=== PATIENT | female | born 1960 | race Caucasian/White ===

== ENCOUNTER 2016-08-01 14:50 | Emergency (ER) | payer OTHER ==
--- NOTE | 2016-08-01 15:13 | EDPRACDOC ---
- General Stated Complaint: TIA Time Seen by Provider: 08/01/16 15:02 Information Source: Patient Exam Limitations: No Limitations Allergies/Adverse Reactions: Allergies Allergy/AdvReac Type Severity Reaction Status Date / Time No Known Allergies Allergy Verified 08/01/16 16:02 Home Medications: Ambulatory Orders Metformin HCl 500 mg PO BID #60 tab 10/21/15 Promethazine [Phenergan] 25 mg PO Q8H PRN #30 tab 10/21/15 Losartan Potassium [Cozaar] 50 mg PO DAILY 08/01/16 Metoprolol Tartrate 50 mg PO BID #60 tablet 08/01/16 Nitrofurantoin [Macrobid] 100 mg PO BID #10 capsule 08/01/16 - History of Present Illness Exact Onset of Symptoms: Unknown Date Symptoms Started: 08/01/16 Symptoms Started: Reports: At Rest Symptoms: Reports: Slurred speech Associated Symptoms: Reports: Denies Symptoms HPI: PT PRESENTS WITH RESOLVED SLURRED SPEECH WHICH WAS NOTICED BY [employer]. SHE DENIES OTHER SYMPTOMS. DOES NOT KNOW ONSET BECAUSE SHE HAD NOT NOTICED THE SLURRING. 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 SHE DOES ADMIT TO MISSING HER BLOOD PRESSURE MEDICATION THIS MORNING WHICH IS AN ARB. ED Past Medical History - History Reviewed Yes Nurses notes reviewed and agree except as marked - Patient Medical History Cardiac History: Reports: Hypertension, Hypercholesterolemia GI/ History: Reports: Urinary Tract Infection Psychological History: Denies: Substance Use Disorder Systemic History: Reports: Diabetes - Family Medical History Reports: Diabetes, Stroke (Father). Denies: Hypertension, Cancer - Social Medical History Smoking Status: Former smoker Social History: Denies: Barbiturate Use, Substance Use Disorder Lives In: Home EDM Review of Systems - Review of Systems ROS Negative Except as Marked: Yes All systems reviewed and were negative except as marked Constitutional: negative: Fever Respiratory: negative: Shortness of Breath Cardiovascular: negative: Chest Pain Gastrointestinal: negative: Nausea, Pain, Vomiting Neurological: Speech Difficulty (SLURRED SPEECH AT WORK WHICH HAS RESOLVED.). negative: Headache - Physical Exam Constitutional: Alert Oriented to: Time, Person, Place Last recorded Vital Signs: Oxygen Pulse Oxygen Saturation O2 Device Oxygen Flow Rate Fraction of Inspired Oxygen ( FIO2) - HEENT Head: negative: Deformity, Laceration Eye Exam: negative: Conjunctival Injection, Pale Conjunctiva Oropharynx: negative: Membranes Dry Nose: negative: Congestion, Discharge Neck: negative: Limited ROM - Respiratory/Cardiovascular Respiratory: Normal - CTA. negative: Accessory Muscle Use, Diminished, Tachypnea Cardiovascular: negative: Bradycardia, Tachycardia, Irregular - GI Auscultation: Normal Palpation: Normal Tenderness: Non tender - Musculoskeletal Extremities: Pedal Pulse (PALPABLE), Radial Pulse (PALPABLE). negative: Calf Tenderness - Integumentary Skin: Warm, Dry. negative: Rash - Neurologic Memory Impaired: Normal Motor Function: Normal Mood Description: Anxious, Appropriate Thought: Coherent Perception: Normal NIH Stroke Scale Initial Evaluation Level of Consciousness: Alert LOC- Question: Answers Both Correctly LOC Commands: Both Task Correctly Best Gaze: Normal Visual: No Visual Loss Facial Palsy: Normal Movement Motor Arm LEFT: No Drift Motor Arm RIGHT: No Drift Motor Leg LEFT: No Drift Motor Leg RIGHT: No Drift Limb Ataxia: Absent Sensory: Normal Best Language: No Aphasia Dysarthria: Normal Extinction and Inattention: No Abnormality (Neglect) Score: 0out of42 - Action Has patient received an Antithrombotic in the last 24hrs?: No Was an Antithrombotic given in the ED?: Yes Is patient a candidate for lytic therapy?: No Patient received TPA within 30 min of arrival?: No Reason IV Thrombolytics Contraindicated: Rapid Improvement - Re-evaluation Re-evaluation 1 Re-evaluation Time: 19:15 PT HAS REMAINED ASYMPTOMATIC SINCE ARRIVAL AND HER BLOOD PRESSURE IS DECREASING AFTER ADDITION OF METOPROLOL. WILL PRESCRIBE FOR HOME AND HAVE ADVISED HER TO TAKE A DAILY ASPIRIN. - Results 08/01/16 15:10 08/01/16 15:10 - EKG EKG #1 EKG Time: 15:01 -: Yes EKG interpreted by me Rate: bpm: 90 Rhythm: NSR Block: None ST: Nonsp Decision Time to Discharge: 19:16 - Departure Yes I personally saw and evaluated the patient. Disposition: Home Condition: Improved Final Diagnosis: Urinary tract infection Qualifiers: Urinary tract infection type: site unspecified Hematuria presence: without hematuria Qualified Code(s): N39.0 - Urinary tract infection, site not specified TIA (transient ischemic attack) Qualifiers: Transient cerebral ischemia type: unspecified Qualified Code(s): G45.9 - Transient cerebral ischemic attack, unspecified Hypertension Qualifiers: Hypertension type: essential hypertension Qualified Code(s): I10 - Essential ( primary) hypertension Instructions: Urinary Tract Infection in Women (ED), Dysuria, Chronic Hypertension (ED), Transient Ischemic Attack (ED) Education/Counseling Given To: Patient, Family Member Education/Counseling Given Regarding: Diagnosis, Treatment, Prognosis, Follow Up Referrals: Jeff Cummins MD [Primary Care Provider] - Call for Appointment Prescriptions: Metoprolol Tartrate 50 mg PO BID #60 tablet Nitrofurantoin [Macrobid] 100 mg PO BID #10 capsule Additional Instructions: MAKE SURE TO CALL YOUR PCP TO ARRANGE A FOLLOW UP APPOINTMENT. PLEASE RETURN FOR ADMISSION IF YOUR SYMPTOMS RETURN.
--- NOTE | 2016-08-01 15:28 | DIRPT ---
CLINICAL DATA: Episode of slurred speech today. Initial encounter. EXAM: CHEST 2 VIEW COMPARISON: Single view of the chest 02/16/2005 and 07/26/2004. CT chest 02/16/2005. FINDINGS: The lungs are clear. The ascending aorta is ectatic. The ascending aorta is ectatic but unchanged. Heart size is normal. No pneumothorax or pleural effusion. Mild elevation of the right hemidiaphragm relative to the left is unchanged. No focal bony abnormality. IMPRESSION: No acute disease. Electronically Signed By: Efraín Willis M.D. On: 08/01/2016 15:25
--- NOTE | 2016-08-01 15:44 | DIRPT ---
CLINICAL DATA: Transient slurred speech. Dizziness and hypertension EXAM: CT HEAD WITHOUT CONTRAST TECHNIQUE: Contiguous axial images were obtained from the base of the skull through the vertex without intravenous contrast. COMPARISON: December 09, 2015 FINDINGS: The ventricles are normal in size and configuration. Prominence of the cisterna magna is an anatomic variant. There is no demonstrable mass, hemorrhage, extra-axial fluid collection, or midline shift. There is evidence of a prior small infarct in the posterior left centrum semiovale. Elsewhere, there is minimal small vessel disease in the centra semiovale bilaterally. No acute infarct currently evident. Bony calvarium appears intact. Mastoid air cells are clear. 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 Rather minimal small vessel disease in the centra semiovale bilaterally. No acute infarct evident. No hemorrhage or mass effect. Electronically Signed By: Mo Jensen III, M.D. On: 08/01/2016 15:41
[2016-08-01 15:53] LABS: AUTOMATED BASOPHIL 0.6 % (0-2); AUTOMATED EOSINOPHIL 0.6 % (0-5); AUTOMATED LYMPH 24.5 % (17-44); AUTOMATED MONOCYTE 7.3 % (3-10)
[2016-08-01 16:02] VITALS: BMI 30.2
[2016-08-01 16:02] LABS: BLOOD UREA NITROGEN 46 MG/DL (7-17); CALC CORRECTED 9.3 MG/DL (8.4-10.2); CALCIUM 8.9 MG/DL (8.4-10.2); CALCULATED OSMOLALITY 273 MOs/Kg (270-290); CHLORIDE 96 mEq/L (98-107); GLUCOSE 122 MG/DL (70-99); SODIUM LEVEL 135 mEq/L (137-146); TOTAL PROTEIN 7.3 G/DL (6.3-8.2)
[2016-08-01 16:08] LABS: PARTIAL THROMB. TIME 24.4 SEC (22-35); PT-INR 1.1
[2016-08-01 16:23] LABS: WBC/URINE TNTC (0-5)
[2016-08-01 16:32] LABS: LEUKOCYTES/URINE 1+ (NEGATIVE); URINE OCCULT BLOOD 1+ (NEG/TRACE)
[2016-08-01 16:33] LABS: NITRITE/URINE NEG (NEGATIVE)
[2016-08-01] MEDS ORDERED: POTASSIUM CHLORIDE 20 MEQ TAB PO STA (16:37)
[2016-08-01] MEDS ORDERED: LOSARTAN POTASSIUM 50 MG TAB PO ONE (16:37)
[2016-08-01] MEDS ORDERED: CEFTRIAXONE 1 GM in D5W 100 ML IV ONE (16:38)
[2016-08-01] MEDS ORDERED: METOPROLOL TARTRATE 25 MG TAB PO ONE (18:48)
[2016-08-01] MEDS ORDERED: ASPIRIN 325 MG TAB PO ONE (19:15)
[2016-08-01] MEDS ORDERED: ASPIRIN 325 MG TAB ONE (19:39)
[2016-08-01 19:54] VITALS: BP 173/84; PULSE 77; TEMP 98
== END 2016-08-01 19:45 | disposition home or self-care (01) ==
LOC: ED 14:50
DX: G45.9 Transient cerebral ischemic attack, unspecified (principal); I10 Essential (primary) hypertension
CPT/HCPCS: 36415; 70450; 71020; 80053; 81001; 84484; 85025; 85610; 85730; 93005; 96365; 99285; J0696; J3490; J7060